=== PATIENT | female | born 1940 | race Caucasian/White ===

== ENCOUNTER → 2017-03-18 | Outpatient (CLI) | payer OTHER, MEDICARE ==
--- NOTE | 2017-03-19 15:19 | MAM ---
EXAM DESCRIPTION: Screening Mammogram,Bilateral: Digital Mammography CLINICAL HISTORY: 76 years Female SCREENING no complaints. Mother with breast cancer. Postmenopausal. No HRT. COMPARISON: 2-D digital bilateral screening 11/28/2015 and 09/03/2013.. No prior reports available. TECHNIQUE: Bilateral CC and MLO projection full-field images, 2-D digital screening mammographic technique. CAD was utilized. FINDINGS: The breast parenchymal density pattern is: Scattered areas of fibroglandular density. No skin thickening or nipple retraction bilateral axillary and intramammary lymph nodes. Bilateral skin moles indicated by skin markers. No focal, stellate mass or density, focal asymmetry , and no suspicious microcalcifications bilaterally. Stable mammograms compared to the prior study, September 2013, taking into account differences in mammographic technique. IMPRESSION: BI-RADS CATEGORY: 2 - BENIGN FINDINGS. FOLLOW UP: Routine digital bilateral screening, one year interval from March 2017. Written communication explaining the IMPRESSION and follow-up, will be mailed to the patient and referring health care provider. According to the [employer], yearly mammograms are recommended starting at age 40 and continuing as long as a woman is in good health. Any breast change noted on a breast self-exam should be reported promptly to the patient's healthcare provider. Breast MRI is recommended for women with an approximately 20-25% or greater lifetime risk of breast cancer, including women with a strong family history of breast or ovarian cancer and women who have been treated for Hodgkin's disease. A negative mammographic report should not delay tissue diagnosis in patients with significant clinical history or physical findings. Extremely dense breast tissue limits the sensitivity of digital mammography. Electronically signed by: Woody Mera MD 03/19/2017 3:18 PM CDT
== END | disposition home or self-care (01) ==
LOC: MAMMO 15:57
PROVIDERS: ATTEND Family Medicine
DX: Z12.31 Encounter for screening mammogram for malignant neoplasm of breast (principal)

== ENCOUNTER → 2017-04-01 | Outpatient (CLI) | payer OTHER, MEDICARE ==
--- NOTE | 2017-04-02 08:25 | MRI ---
EXAM DESCRIPTION: Lower Extremity,Right CLINICAL HISTORY: POSTERIOR TIBIAL TENDINITIS COMPARISON: None Available. TECHNIQUE: MRI of the right foot-ankle is performed according to our usual protocol with multiplanar multi sequence imaging. FINDINGS: Complete disruption of the anterior tibial tendon with the tendon retracted back to the level of the distal talus. Diffuse thickening of the torn end of the tendon is present and there is moderate tenosynovitis. No other tendinopathy or tendon tear is observed. Severe midfoot arthritic changes are present involving the tarsals and especially the tarsal metatarsal joints with marked joint space narrowing hypertrophic marginal osteophyte formation and subchondral eburnation and reactive marrow edema. Mortise joint and subtalar joints are unremarkable. Sinus Tarsi unremarkable. Chronically torn anterior talofibular ligament with no intact fibers. The other components of the lateral ligament complex appear intact. Medial deltoid ligament complex is intact. 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
== END | disposition home or self-care (01) ==
LOC: MRI 10:11
PROVIDERS: ATTEND Podiatrist Foot & Ankle Surgery
DX: M76.821 Posterior tibial tendinitis, right leg (principal); M14.60 Charcot's joint, unspecified site

== ENCOUNTER → 2017-04-22 | Outpatient (CLI) | payer OTHER, MEDICARE | END | disposition home or self-care (01) | LOC: LAB.O 10:15 | PROVIDERS: ATTEND Family Medicine | DX: R19.7 Diarrhea, unspecified (principal) ==

== ENCOUNTER 2017-06-28 05:48 | Day surgery (SDC) | payer OTHER, MEDICARE ==
--- NOTE | 2017-06-21 20:00 | SSS ---
CHIEF COMPLAINT: Need for screening colonoscopy and recent history of diarrhea. HISTORY OF PRESENT ILLNESS: Ms. Weaver is a 76 year-old recent who presented to my office on 05/08/17 complaining of approximately 1 month history of 1 to 2 watery, non-bloody loose stools per day with associated abdominal cramping. She denied any sick contacts at that time. Stool studies were done which were all negative. She was treated simply with Lomotil at that time. It was noted that she had never had a colonoscopy or any sort of screening really for colon cancer. She presented back to my office on June 11, and was agreeable to going forward with a colonoscopy. Her diarrhea had stopped spontaneously. She is no longer having abdominal cramping. She denied any blood in her stools. She denied any significant changes in her weight. PAST MEDICAL HISTORY: 1. Gastroesophageal reflux disease that usually manifests as cough. 2. Seasonal allergies. 3. Recent depression with the of her . PAST SURGICAL HISTORY: 1. Appendectomy at age 14. 2. Hysterectomy and bilateral salpingo-oophorectomy by Dr. Fountain in 1989. 3. Laparoscopic cholecystectomy in the early by Dr. Mcguire. 4. Right total knee replacement. 5. Tonsillectomy. 6. PIP joint arthroplasty of the second and third toe with partial bone excision of metatarsal and bunionectomy of the left foot by Dr. Ronak Lockwood on 01/09/08. 7. Open reduction and internal fixation of left hip for osteoarthritis by Dr. Trent Vieira in June 2010. 8. Left reverse total shoulder arthroplasty and biceps tenodesis by Dr. Branden Eduardo in April 2014. 9. Partial redo of left shoulder reverse total replacement when she had hardware failure. This was a "poly exchange" by Dr. Eduardo in December 2016. 10. Esophagogastroduodenoscopy by this physician in September 2005 that showed mild esophagitis and gastritis. She was H. pylori negative. 11. Nuclear stress test in 2015 that showed an ejection fraction of 73% with normal perfusion. CURRENT MEDICATIONS: 1. Trintellix. 2. Celebrex. 3. Triamterene HCTZ. 4. Ziej-whd-eebjelk vitamins. ALLERGIES: FELDENE IN THAT IT GAVE HER ULCERS. FAMILY HISTORY: Father at 82 from a myocardial infarction. Mother at 62 from breast cancer. She has 1 brother, Moe Vital, who has a history of congestive heart failure and has a pacemaker. SOCIAL HISTORY: She has 3 children. She is recently . 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 She smoked 2 packs of cigarettes per day for 30 years but quit in 1984. She drinks alcohol on a social basis only. REVIEW OF SYSTEMS: Negative except as per History of Present Illness and the recent depression. PHYSICAL EXAMINATION: VITAL SIGNS: Blood pressure 140/80, height 5' 7", weight 185, pulse 80. GENERAL: She is awake and alert in no acute distress. HEENT: Unremarkable. NECK: Supple. CHEST: Lungs are clear. CARDIOVASCULAR: Regular rate and rhythm. ABDOMEN: Soft, non-tender. EXTREMITIES: Without edema. SKIN: Warm and dry. ASSESSMENT: 1. Recent diarrhea that has resolved. 2. Need for screening colonoscopy. PLAN: Colonoscopy on 06/28/17. We will likely do several biopsies for microscopic colitis. #[id number] [facility]
[2017-06-28] MEDS ORDERED: LACTATED RINGERS 1,000 ML ONE (06:41)
[2017-06-28] MEDS ORDERED: PROPOFOL 200 MG/20 ML VIAL IV ONE (07:00)
[2017-06-28] MEDS ORDERED: LIDOCAINE 1% 10 ML VIAL INJ ONE (07:00)
[2017-06-28] MEDS ORDERED: GLYCOPYRROLATE 0.2 MG/ML VIAL ONE (07:00)
[2017-06-28] MEDS ORDERED: fentaNYL CITRATE INJ 50 MCG/ML AMP ONE (07:29)
--- NOTE | 2017-06-28 09:35 | OP ---
DATE OF PROCEDURE: 06/28/17 PREOPERATIVE DIAGNOSIS: 1. Need for screening colonoscopy. POSTOPERATIVE DIAGNOSIS: 1. Left sided diverticula. PROCEDURE: 1. Colonoscopy. SURGEON: Ac Capone MD. ESTIMATED BLOOD LOSS: None. COMPLICATIONS: No immediate complications. ANESTHESIA: Propofol 500 mg administered intravenously and 1 mL of fentanyl intravenously using monitored anesthesia care administered by Ta Yi CRNA. TECHNIQUE: After informed consent was obtained from the patient, the patient was taken to the Endoscopy Suite and placed in the left lateral decubitus position. Incremental doses of propofol and fentanyl were given until adequate conscious was obtained. Vital signs were monitored throughout the procedure. Supplemental oxygen was administered throughout the procedure. After adequate conscious sedation was obtained, digital rectal examination was performed, which was unremarkable. The colonoscope was then advanced into the patient's rectum and up through the sigmoid, descending, transverse and ascending colon to the level of the cecum. Some looping was experienced, especially when we got into the ascending colon, but this was eventually removed, however. The terminal ileum could not be entered. The cecum was photographed several times. Overall, her bowel prep was quite good. There were a few areas of liquid stool throughout the colon and great effort was made to suction out as much of this as possible. I feel confident that no polyps over 1 cm were missed. The colonoscope was then slowly withdrawn, taking great care to try to visualized all ospina of the colon in 360 degree fashion. No polyps were noted throughout the colon. There were left sided diverticula, they were all small and moderate in number. They were primarily in the sigmoid. The scope was retroflexed upon itself in the rectum and no significant abnormalities were noted here other than mild grade 1 internal hemorrhoids. The colonoscope was then unretroflexed and air was suctioned out of the patient's rectum. The colonoscope was removed from the patient. The patient tolerated the procedure well. PLAN: The patient will need another colonoscopy unless symptoms arise. #[id number] [facility]
[2017-06-28 09:43] VITALS: BP 111/58; TEMP 97; O2SAT 96
== END 2017-06-28 09:25 | disposition home or self-care (01) ==
LOC: AMB 05:48
PROVIDERS: ATTEND Family Medicine
DX: Z12.11 Encounter for screening for malignant neoplasm of colon (principal); K57.30 Diverticulosis of large intestine without perforation or abscess without bleeding; K21.9 Gastro-esophageal reflux disease without esophagitis; Z79.899 Other long term (current) drug therapy; Z88.8 Allergy status to other drugs, medicaments and biological substances; Z87.891 Personal history of nicotine dependence
CPT/HCPCS: 00812; 45378; J3010; J3490; J7120

== ENCOUNTER → 2018-03-27 | Outpatient (CLI) | payer OTHER, MEDICARE ==
--- NOTE | 2018-03-28 15:50 | MAM ---
EXAM DESCRIPTION: 3D Screening BILATERAL : Digital Mammography. CLINICAL HISTORY: 77 years Female SCREENING . No complaints or personal history of breast cancer. Mother with breast cancer. Late childbirth after age 29. Postmenopausal. No HRT. Lifetime risk of developing breast cancer (Tyrer-Cuzick model)(%): 6.2. COMPARISON: 2-D digital screening bilateral study 03/18/2017.. No prior reports available. TECHNIQUE: Bilateral CC and MLO projection full-field images, Digital tomosynthesis mammographic technique Bilateral digital 2-D full-field MLO images. CAD not utilized. FINDINGS: The breast parenchymal density pattern is: Almost entirely fatty. No skin thickening or nipple retraction. Bilateral axillary lymph nodes. Bilateral skin moles. No new focal, stellate mass or density, focal asymmetry , and no suspicious microcalcifications bilaterally. Stable mammograms compared to prior study. Taking into account, differences in mammographic technique. IMPRESSION: Benign exam. BIRAD CATEGORY: 2 BENIGN FINDINGS. RECOMMENDATIONS: FOLLOW UP: Routine digital bilateral screening, one year interval from March 2018. Written communication explaining the IMPRESSION and follow-up, will be mailed to the patient and referring health care provider. According to the [employer], yearly mammograms are recommended starting at age 40 and continuing as long as a woman is in good health. Any breast change noted on a breast self-exam should be reported promptly to the patient's healthcare provider. Breast MRI is recommended for women with an approximately 20-25% or greater lifetime risk of breast cancer, including women with a strong family history of breast or ovarian cancer and women who have been treated for Hodgkin's disease. A negative mammographic report should not delay tissue diagnosis in patients with significant clinical history or physical findings. Extremely dense breast tissue limits the sensitivity of digital mammography. Electronically signed by: Woody Mera MD 03/28/2018 3:49 PM CDT
== END ==
LOC: MAMMO 11:00
PROVIDERS: ATTEND Family Medicine
DX: Z12.31 Encounter for screening mammogram for malignant neoplasm of breast (principal)

== ENCOUNTER → 2018-05-06 | Outpatient (CLI) | payer MEDICARE | LOC: GMAL 15:05 | PROVIDERS: ATTEND Family Medicine | DX: D51.3 Other dietary vitamin B12 deficiency anemia (principal); R53.82 Chronic fatigue, unspecified; E55.9 Vitamin D deficiency, unspecified ==

== ENCOUNTER → 2019-07-10 | Outpatient (CLI) | payer MEDICARE ==
--- NOTE | 2019-07-10 17:27 | MAM ---
EXAM DESCRIPTION: 3D Screening BILATERAL : Digital Mammography. CLINICAL HISTORY: 78 years Female SCREENING . No complaints. No personal history of breast cancer. Mother with breast cancer at age 65. Menarche age 11. Childbirth age 31. Postmenopausal, age unknown. No HRT. Lifetime risk of developing breast cancer (Tyrer-Cuzick model)(%): 5.7. COMPARISON: Bilateral screening digital breast tomosynthesis March 2018. 2-D digital screening bilateral mammography March 2017. TECHNIQUE: Bilateral CC and MLO projection full-field images, digital tomosynthesis mammographic technique. Bilateral digital 2-D full-field MLO images. CAD available for 2-D images. FINDINGS: The breast parenchymal density pattern is: Almost entirely fatty. No skin thickening or nipple retraction. Bilateral axillary lymph nodes. Bilateral intramammary lymph nodes. Bilateral solitary microcalcifications. No new focal, stellate mass or density, focal asymmetry , and no suspicious microcalcifications bilaterally. Stable mammograms compared to prior study. Taking into account, differences in mammographic technique. IMPRESSION: Benign exam. BIRAD CATEGORY: 2 BENIGN FINDINGS. RECOMMENDATIONS: FOLLOW UP: Routine digital bilateral mammographic screening, one year interval from July 2019. Written communication explaining the IMPRESSION and follow-up, will be mailed to the patient and referring health care provider. According to the [employer], yearly mammograms are recommended starting at age 40 and continuing as long as a woman is in good health. Any breast change noted on a breast self-exam should be reported promptly to the patient's healthcare provider. Breast MRI is recommended for women with an approximately 20-25% or greater lifetime risk of breast cancer, including women with a strong family history of breast or ovarian cancer and women who have been treated for Hodgkin's disease. A negative mammographic report should not delay tissue diagnosis in patients with significant clinical history or physical findings. Extremely dense breast tissue limits the sensitivity of digital mammography. Electronically signed by: Woody Mera MD 07/10/2019 5:26 PM DEPORTATION OFFICER
== END ==
LOC: MAMMO 13:00
PROVIDERS: ATTEND Family Medicine
DX: Z12.31 Encounter for screening mammogram for malignant neoplasm of breast (principal)

== ENCOUNTER → 2019-12-03 | Outpatient (CLI) | payer MEDICARE | LOC: GMAL 14:42 | PROVIDERS: ATTEND Family Medicine | DX: D51.3 Other dietary vitamin B12 deficiency anemia (principal); I10 Essential (primary) hypertension; R53.83 Other fatigue; E55.9 Vitamin D deficiency, unspecified; R35.0 Frequency of micturition; E78.49 Other hyperlipidemia ==